=== PATIENT | female | born 1985 | race African-American/Black ===

== ENCOUNTER 2017-12-04 22:44 | Emergency (ER) | payer OTHER ==
[2017-12-04 23:27] VITALS: BP 00/00
--- NOTE | 2017-12-05 02:39 | ED ---
Hernandez Zuluaga Sixian, scribed for Mansoor Ricardo MD on 12/04/17 at 2311 . Influenza-Like Illness - HPI Summary HPI Summary: This patient is a 32 year old F to presenting to ED with a chief complaint of flu symptoms since one day ago. The patient rates the pain 2/10 in severity. Symptoms aggravated and alleviated by nothing. Patient reports congestion, dizziness, body aches. Patient denies sore throat, neck pain, abdominal pain, CP , N/V/D. - History of Current Complaint Chief Complaint: EDFluSymptoms Time Seen by Provider: 12/04/17 23:04 Hx Obtained From: Patient Onset/Duration: Gradual Onset, Lasting Days, Still Present Severity: Mild - 2/10 Associated Signs & Symptoms: Myalgia, Nasal Congestion - Allergy/Home Medications Allergies/Adverse Reactions: Allergies Allergy/AdvReac Type Severity Reaction Status Date / Time No Known Allergies Allergy Verified 12/04/17 22:52 Home Medications: Home Medications NK [No Home Medications Reported] 12/04/17 [History Confirmed 12/04/17] PMH/Surg Hx/FS Hx/Imm Hx Endocrine/Hematology History: Denies: Hx Diabetes Cardiovascular History: Denies: Hx Hypertension Infectious Disease History: No Infectious Disease History: Denies: Traveled Outside the [place] in Last 30 Days - Family History Known Family History: Positive: Diabetes - Social History Alcohol Use: None Substance Use Type: Reports: None Smoking Status (MU): Never Smoked Tobacco Review of Systems ENT: Negative - neck pain Positive: Other - congestion . Negative: Sore Throat Negative: Chest Pain Negative: Abdominal Pain, Vomiting, Diarrhea, Nausea Positive: Myalgia Neurological: Other - dizziness All Other Systems Reviewed And Are Negative: Yes Physical Exam - Summary Physical Exam Summary: Appearance: Well-appearing, Well-nourished, lying in bed comfortably Skin: Warm, dry, no obvious rash Eyes: sclera anicteric, no conjunctiva pallor ENT: mucous membranes moist, pharynx appears normal Neck: Supple, nontender Respiratory: Clear to auscultation, no signs of respiratory distress Cardiovascular: Normal S1, S2. No murmurs. Normal distal pulses in tibial and radial bilaterally. Abdomen: Soft, nontender, normal active bowel sounds present Musculoskeletal: Normal, Strength/ROM Intact Neurological: A&Ox3, awake and alert, mentation is normal, speech is fluent and appropriate Psychiatric: affect is normal, does not appear anxious or depressed Triage Information Reviewed: Yes Vital Signs On Initial Exam: Initial Vitals Temp Pulse Resp BP Pulse Ox 97.4 F 94 16 143/86 99 12/04/17 22:50 12/04/17 22:50 12/04/17 22:50 12/04/17 22:50 12/04/17 22:50 Vital Signs Reviewed: Yes Diagnostics - Vital Signs Vital Signs Temp Pulse Resp BP Pulse Ox 12/04/17 22:50 97.4 F 94 16 143/86 99 - Laboratory Lab Statement: Any lab studies that have been ordered have been reviewed, and results considered in the medical decision making process. Flu Symptom Course/Dx - Diagnoses Differential Diagnosis/HQI/PQRI: Positive: Bronchitis, Upper Respiratory Infection. Negative: Pneumonia Provider Diagnoses: Rhinitis, nonallergic, URI (upper respiratory infection) Discharge - Sign-Out/Discharge Documenting (check all that apply): Discharge/Admit/Transfer - Discharge Plan Condition: Good Disposition: HOME Patient Education Materials: Upper Respiratory Infection (ED), Postnasal Drip ( DC) [facility] [Primary Care Provider] - Additional Instructions: RETURN TO THE EMERGENCY DEPARTMENT FOR CHANGING OR WORSENING SYMPTOMS. Afrin nasal spray and/or neti pot are 2 things that can help with your symptoms. They are available over the counter. The documentation as recorded by the Hernandez ponce Sixian accurately reflects the service I personally performed and the decisions made by me, Mansoor Ricardo MD.
== END 2017-12-04 23:24 | disposition home or self-care (01) ==
LOC: ED 22:44
DX: J31.0 Chronic rhinitis (principal); J06.9 Acute upper respiratory infection, unspecified
CPT/HCPCS: 99281

== ENCOUNTER 2018-01-22 14:57 | Emergency (ER) | payer OTHER ==
[2018-01-22] MEDS ORDERED: HYDROcodone/ACETAMIN 5-325 MG* 1 TAB PO ONE (15:18)
[2018-01-22] MEDS ORDERED: Lidocaine 1%* 5 ML VIAL INJ ONE (15:32)
--- NOTE | 2018-01-22 16:27 | RAD ---
Indication: Right forearm injury. 2 views of the right forearm demonstrates no fracture. No other bone or joint abnormality is noted. IMPRESSION: No fracture of the right forearm is noted.
--- NOTE | 2018-01-22 16:29 | RAD ---
Indication: Dislocation of the thumb. 4 views of the right hand demonstrates dislocation of the proximal phalanx of the thumb radially. IMPRESSION: Dislocation of the proximal phalanx of the thumb.
--- NOTE | 2018-01-22 16:30 | RAD ---
Indication: Right shoulder injury. 4 views of the right shoulder demonstrates no fracture. No other bone or joint abnormality is identified. IMPRESSION: No fracture of the right shoulder is noted.
--- NOTE | 2018-01-22 16:31 | RAD ---
Indication: Traumatic right thumb dislocation, postreduction. 3 views of the right thumb demonstrates reduction of the previously identified dislocation of the proximal phalanx of the thumb. IMPRESSION: REDUCTION OF PREVIOUSLY KNOWN DISLOCATION OF THE PROXIMAL PHALANX OF THE THUMB.
[2018-01-22 17:17] VITALS: BP 134/77
--- NOTE | 2018-01-23 06:01 | ED ---
Upper Extremity Pain - HPI Summary HPI Summary: Patient is a 32-year-old otherwise healthy female presenting to the ED with a right arm injury. She states she fell off of a chair while standing atop it. Endorses pain to the thumb, forearm, and shoulder. There is an obvious deformity to the thumb, however there is no other deformities, and patient denies any color changes to the arm. She states she has not tried to move the arm and came directly into the ED. 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 - History of Current Complaint Chief Complaint: EDExtremityUpper Stated Complaint: RT ARM INJURY Time Seen by Provider: 01/22/18 15:18 Hx Obtained From: Patient Mechanism Of Injury: Direct Blow Onset/Duration: Started Hours Ago Timing: Constant Severity Initially: Moderate Severity Currently: Moderate Pain Location: Shoulder, Arm, Elbow, Hand Character: Aching Aggravating Factor(s): Movement, Lifting, Flexion, Extension Alleviating Factor(s): Nothing Associated Signs & Symptoms: Positive: Negative Related History: Dominant Hand Right - Risk Factors Non-Orthopedic Risk Factor: Negative DVT Risk Factors: Negative Septic Arthritis Risk Factor: Negative - Allergies/Home Medications Allergies/Adverse Reactions: Allergies Allergy/AdvReac Type Severity Reaction Status Date / Time No Known Allergies Allergy Verified 01/22/18 15:23 PMH/Surg Hx/FS Hx/Imm Hx Previously Healthy: Yes Endocrine/Hematology History: Denies: Hx Diabetes Cardiovascular History: Denies: Hx Hypertension - Immunization History Hx Pertussis Vaccination: No Immunizations Up to Date: Unable to Obtain/Confirm Infectious Disease History: No Infectious Disease History: Denies: Traveled Outside the [place] in Last 30 Days - Family History Known Family History: Positive: Diabetes - Social History Occupation: Employed Full-time Lives: With Family Alcohol Use: Occasionally Hx Substance Use: No Substance Use Type: Reports: None Hx Tobacco Use: No Smoking Status (MU): Never Smoked Tobacco Review of Systems Constitutional: Negative Negative: Fever, Chills, Fatigue, Skin Diaphoresis Negative: Palpitations, Chest Pain Negative: Shortness Of Breath, Cough Genitourinary: Negative Positive: no symptoms reported, see HPI Positive: Arthralgia, Myalgia Skin: Negative Neurological: Negative All Other Systems Reviewed And Are Negative: Yes Physical Exam Triage Information Reviewed: Yes Vital Signs On Initial Exam: Initial Vitals Temp Pulse Resp BP Pulse Ox 98.3 F 76 16 127/77 99 01/22/18 15:18 01/22/18 15:18 01/22/18 15:18 01/22/18 15:18 01/22/18 15:18 Vital Signs Reviewed: Yes Appearance: Positive: Well-Appearing, Well-Nourished Skin: Positive: Warm, Skin Color Reflects Adequate Perfusion Head/Face: Positive: Normal Head/Face Inspection Neck: Positive: Supple Respiratory/Lung Sounds: Positive: Clear to Auscultation, Breath Sounds Present Cardiovascular: Positive: RRR, Pulses are Symmetrical in both Upper and Lower Extremities Musculoskeletal: Positive: Pain @ - right thumb deformity and pain Neurological: Positive: Speech Normal Psychiatric: Positive: Normal, Affect/Mood Appropriate AVPU Assessment: Alert Diagnostics - Vital Signs Vital Signs Temp Pulse Resp BP Pulse Ox 01/22/18 17:18 97.7 F 69 16 134/77 99 01/22/18 17:13 75 99 01/22/18 16:52 134/77 01/22/18 16:22 124/94 01/22/18 15:52 125/96 01/22/18 15:23 77 99 01/22/18 15:21 84 127/77 99 01/22/18 15:18 98.3 F 76 16 127/77 99 - Laboratory Lab Statement: Any lab studies that have been ordered have been reviewed, and results considered in the medical decision making process. Course/Dx - Course Course Of Treatment: Patient is evaluated for right shoulder, forearm and hand injury. Obvious deformity to the R thumb. No other deformities noted. Xray obtained of shoulder, forearm and hand. X-rays all negative except for a dislocation of the proximal phalanx of the thumb. Lidocaine used as local anesthetic block obtained. Reduction of the thumb. Patient tolerated well. post reduction xray obtained which shows adequate reduction. Thumb spica placed. She will follow up with ortho within 1 week. - Diagnoses Differential Diagnosis/HQI/PQRI: Positive: Strain, Sprain Provider Diagnoses: Thumb dislocation Discharge - Sign-Out/Discharge Documenting (check all that apply): Discharge/Admit/Transfer - Discharge Plan Condition: Stable Disposition: HOME Patient Education Materials: Finger Dislocation (ED) Referrals: No Primary Care Phys,[facility] [Primary Care Provider] - Costa Hanna MD [Medical Doctor] - Additional Instructions: Keep in thumb spica splint x 3-4 weeks Follow up with orthopedics within 7 days to assess improvement - Billing Disposition and Condition Condition: STABLE Disposition: Home
== END 2018-01-22 17:18 | disposition home or self-care (01) ==
LOC: ED 14:57
DX: S63.104A Unspecified dislocation of right thumb, initial encounter (principal); M79.601 Pain in right arm; W07.XXXA Fall from chair, initial encounter; Y92.9 Unspecified place or not applicable; M25.511 Pain in right shoulder
CPT/HCPCS: 96374; 99282